=== PATIENT | male | born 1955 | race Caucasian/White ===

== ENCOUNTER 2022-03-16 09:41 | Emergency (ER) | payer MEDICAID ==
[~2022-03-16] VITALS: Ht 172.7 cm; Wt 117.9 kg
[2022-03-16 09:57] VITALS: BP 129/76
--- NOTE | 2022-03-16 10:15 | NUR ---
66YO MALE PT BIB FAMILY FOR WOUND CHECK. PT STATES GETTING PROSTATE SURGERY ON 03/09 DUE TO PROSTATE CANCER. ABDOMEN PRESENTS WITH INCISION ACROSS LOWER ABDOMEN, MILD CLEAR DRAINAGE NOTED. DENIES PAIN AT THIS TIME. STATES BEING COMPLIANT W/ RX GIVEN. DENIES N/V/D, CHEST PAIN OR SOB. PT AAOX4, RESPIRATIONS EVEN AND UNLABORED. AMBULATORY USING [facility] HX:DM2, HTN, PROSTATE CA NKA
--- NOTE | 2022-03-16 10:18 | NUR ---
Patient assisted to bed 8 at this time.
[2022-03-16 11:08] VITALS: BP 129/76
--- NOTE | 2022-03-16 11:08 | NUR ---
Patient discharged with v/s stable. Written and verbal after care instructions FOR UNCONTROLLED WOUND DRESSING given and explained. Patient verbalized understanding. Ambulatory USING [facility] . All questions addressed prior to discharge. Advised to follow up with PMD.
== END 2022-03-16 11:08 | disposition home or self-care (01) ==
LOC: MED 09:41
DX: N99.820 Postprocedural hemorrhage of a genitourinary system organ or structure following a genitourinary system procedure (principal); Y83.8 Other surgical procedures as the cause of abnormal reaction of the patient, or of later complication, without mention of misadventure at the time of the procedure
CPT/HCPCS: 81002; 81025; 99282